=== PATIENT | female | born 1990 | race Caucasian/White ===

== ENCOUNTER 2022-01-29 16:55 | Emergency (ER) | payer MEDICAID ==
[~2022-01-29] VITALS: Ht 170.2 cm; Wt 95.0 kg
[2022-01-29] MEDS ORDERED: SODIUM CHLORIDE 0.9% 1,000 ML IV ONE (18:45)
[2022-01-29 19:18] LABS: BASOPHILS % 0.5 % (0.0-2.0); EOSINOPHILS % 1.2 % (0.0-5.0); HEMATOCRIT. 35.8 % (36.0-48.0); LYMPHOCYTES % 26.2 % (20.0-50.0); MEAN CORPUSCULAR HEMOGLOBIN 30.1 pg (28.0-32.0); MEAN CORPUSCULAR VOLUME 89.6 fL (81.0-99.0); MEAN PLATELET VOLUME 7.4 fl (7.4-10.4); MONOCYTES % 5.8 % (2.0-8.0); NEUTROPHILS % 66.3 % (40.0-76.0); PLATELET 275 x1000/uL (130-400); RED CELL DISTRIBUTION WIDTH 14.3 % (11.6-14.6)
[2022-01-29 19:39] LABS: CHLORIDE 108 mEq/L (98-107)
[2022-01-29 19:51] LABS: B-HCG QUANTITATIVE 9 mIU/mL (<3)
[2022-01-30] MEDS ORDERED: CEPHALEXIN 250MG CAPSULE PO ONE (00:30)
[2022-01-30] MEDS ORDERED: DOXYCYCLINE HYCLATE 100MG CAPSULE PO ONE (00:30)
[2022-01-30] MEDS ORDERED: MISOPROSTOL 200MCG TABLET PO ONE (00:30)
[2022-01-30] MEDS ORDERED: METR-167 MT (00:37)
[2022-01-30] MEDS ORDERED: IBUP-2029 MT (00:37)
[2022-01-30] MEDS ORDERED: DOXY100C5 MT (00:37)
[2022-01-30 01:29] VITALS: BP 114/73
== END 2022-01-30 01:31 | disposition home or self-care (01) ==
LOC: ER 16:55
DX: O03.4 Incomplete spontaneous abortion without complication (principal); N80.9 Endometriosis, unspecified; F15.10 Other stimulant abuse, uncomplicated; Z98.890 Other specified postprocedural states
CPT/HCPCS: 36415; 76801; 76817; 80053; 84702; 85025; 86850; 86900; 86901; 96360; 96361; 99284; J7030